=== PATIENT | female | born 1970 | race Caucasian/White ===

== ENCOUNTER 2020-08-31 21:21 | Emergency (ER) | payer OTHER ==
[2020-08-31] MEDS ORDERED: Ibuprofen 200 MG TAB ONE (21:34)
--- NOTE | 2020-08-31 21:54 | RAD ---
Radiograph right elbow 4 views: 08/31/2020 9:49 PM HISTORY: 50-year-old female with acute traumatic right elbow pain due to fall FINDINGS: There are displaced anterior and posterior fat pads indicating joint capsular distention. There is a nondisplaced linear fracture lucency of the head of the radius, including articular surfac e. No dislocation. No displaced fracture. IMPRESSION: Acute, traumatic, nondisplaced, intra-articular fracture of radial head.
--- NOTE | 2020-08-31 21:58 | RAD ---
RADIOGRAPH RIGHT WRIST 3 VIEWS: DATE: 08/31/2020 HISTORY: 50-year-old female with acute traumatic right wrist pain from fall FINDINGS: No fracture of the scaphoid is identified. However, if there is snuffbox tenderness following trauma that suggests an occult scaphoid fracture, then the general recommendation is immobilization and follow-up imaging in 5-10 days. On the AP and oblique views, there is a small 3 mm calcific fragment located very close to the ulnar, dorsal, edge of the distal radial epiphysis. It is uncertain whether this is chronic or represents an acute chip fracture. No other potential fracture is identified. Alignment is normal., IMPRESSION: 3 mm small calcific density. Uncertain whether this is an acute chip fracture or represents a chronic calcification. Recommend follow-up.
== END 2020-08-31 22:40 | disposition home or self-care (01) ==
LOC: BURERS 21:21
DX: S52.124A Nondisplaced fracture of head of right radius, initial encounter for closed fracture (principal); S52.501A Unspecified fracture of the lower end of right radius, initial encounter for closed fracture; D64.9 Anemia, unspecified; Z79.899 Other long term (current) drug therapy; W01.0XXA Fall on same level from slipping, tripping and stumbling without subsequent striking against object, initial encounter; Y92.219 Unspecified school as the place of occurrence of the external cause